=== PATIENT | female | born 1965 | race Two or more races ===

== ENCOUNTER 2024-10-27 09:55 | Emergency (ER) | payer MEDICARE, OTHER ==
[~2024-10-27] VITALS: Ht 167.6 cm; Wt 120.2 kg
[2024-10-27 14:56] VITALS: BP 122/67; TEMP 98.4; O2SAT 99
== END 2024-10-27 14:58 ==
LOC: ER 10:01
DX: H54.7 Unspecified visual loss (principal); E66.9 Obesity, unspecified; I10 Essential (primary) hypertension; Z79.899 Other long term (current) drug therapy
CPT/HCPCS: 82962-TC